=== PATIENT | male | born 1935 | race Native Hawaiian/Other Pacific Islander ===

== ENCOUNTER 2019-09-09 07:54 | Outpatient (CLI) | payer OTHER ==
--- NOTE | 2019-09-09 09:14 | Cat Scan Report ---
CT CHEST WITHOUT CONTRAST INDICATION / CLINICAL INFORMATION: R91.1 PULM NODULE. TECHNIQUE: Axial CT images were obtained through the chest without contrast. Sagittal and coronal reformatted im ages. All CT scans at this location are performed using CT dose reduction for ALARA by means of autom ated exposure control. COMPARISON: None available. FINDINGS: HEART: No significant abnormality. THORACIC AORTA: Minimal calcific plaques are noted in the arch. No aneurysmal dilatation. MEDIASTINUM and AVE: No significant abnormality. No adenopathy. LUNGS: No acute air space or interstitial disease. No suspicious pulmonary nodule or infiltrate. 5 m m calcified granuloma is noted in the medial left lower lobe. PLEURA: No significant pleural effusion. No pneumothorax. SKELETAL SYSTEM: No significant abnormality. UPPER ABDOMEN: Multiple tiny gallstones are suspected in the gallbladder. No inflammatory changes. ADDITIONAL FINDINGS: None. IMPRESSION: No suspicious pulmonary nodule or mass. 5 mm calcified granuloma at the left lung base consistent with chronic granulomatous disease. Otherwise, unremarkable CT chest for age. Cholelithiasis is suspected in the upper abdomen. No findings to suggest acute cholecystitis. Signer Name: Atul Dennison Jr, MD Signed: 09/09/2019 9:09 AM Workstation Name: [id number]
== END 2019-09-09 07:55 | disposition home or self-care (01) ==
LOC: CT 07:54
PROVIDERS: ATTEND Specialist
DX: J98.4 Other disorders of lung (principal); I70.0 Atherosclerosis of aorta; R91.1 Solitary pulmonary nodule
CPT/HCPCS: 71250

== ENCOUNTER 2021-03-30 17:01 | Outpatient (CLI) | payer MEDICARE ==
--- NOTE | 2021-03-30 17:44 | Vascular Lab Report ---
DUPLEX DOPPLER LOWER EXTREMITY VEINS, LEFT INDICATION: R/O DVT. Left leg pain, swelling TECHNIQUE: Duplex doppler imaging was performed through the veins of the left lower extremity using venous compr ession and other maneuvers. COMPARISON: Prior exam 01/15/2016 FINDINGS: Common femoral vein: Negative. Superficial femoral vein: Negative. Popliteal vein: Negative. Calf veins: Negative. Additional findings: None. IMPRESSION: 1. No sonographic evidence for DVT in the left lower extremity. Signer Name: Eda Rico MD Signed: 03/30/2021 5:39 PM Workstation Name: [id number]
== END 2021-03-30 17:02 | disposition home or self-care (01) ==
LOC: US 17:01
PROVIDERS: ATTEND Internal Medicine
DX: I82.402 Acute embolism and thrombosis of unspecified deep veins of left lower extremity (principal); R60.0 Localized edema